=== PATIENT | male | born 1985 | race Caucasian/White ===

== ENCOUNTER 2016-11-12 13:25 | Emergency (ER) | payer MEDICAID ==
[~2016-11-12] VITALS: Ht 177.8 cm; Wt 81.7 kg
[2016-11-12] MEDS ORDERED: NALOXONE 1 MG/ML, 2ML ONE ×2 (13:32→13:36)
[2016-11-12] MEDS ORDERED: NALOXONE 0.4 MG/ML, 1ML ONE (13:36)
[2016-11-12] MEDS ORDERED: ETOMIDATE 40 MG/20 ML ONE (13:36)
[2016-11-12 14:17] LABS: HEMOGLOBIN 14.1 g/dL (13.7-18.0)
[2016-11-12 14:27] LABS: ASPARTATE AMINO TRANSFERASE 27 U/L (15-37); BLOOD UREA NITROGEN 8 mg/dL (7-18)
[2016-11-12] MEDS ORDERED: NALOXONE 1 MG/ML, 2ML IVPush ONE (14:30)
[2016-11-12 14:33] LABS: ACETAMINOPHEN < 2 mcg/mL (10-30)
[2016-11-12] MEDS ORDERED: SODIUM CHLORIDE 0.9% 1,000ML IVBOLUS ONE ×2 (15:30)
[2016-11-12 15:41] LABS: DAU SCREEN DISCLAIMER
[2016-11-12 16:30] VITALS: BP 113/66
== END 2016-11-12 16:55 | disposition home or self-care (01) ==
LOC: EDBD 13:25 → MERGE 13:25 → ED 16:49
DX: T40.1X1A Poisoning by heroin, accidental (unintentional), initial encounter (principal); Y92.9 Unspecified place or not applicable; J45.909 Unspecified asthma, uncomplicated
CPT/HCPCS: 36415; 80053; 80307; 80329; 85025; 96361; 96374; 99291; J2310; J7030; G0480

== ENCOUNTER 2017-05-09 15:11 | Emergency (ER) | payer MEDICAID ==
[~2017-05-09] VITALS: Ht 177.8 cm; Wt 77.9 kg
[2017-05-09] MEDS ORDERED: SODIUM CHLORIDE 0.9% 1,000 ML IV ONE (16:02)
[2017-05-09 16:18] LABS: HEMOGLOBIN 16.1 g/dL (13.7-18.0); WHITE BLOOD COUNT 6.4 x10^3/uL (3.4-10)
[2017-05-09 16:30] LABS: ASPARTATE AMINO TRANSFERASE 26 U/L (15-37); BLOOD UREA NITROGEN 11 mg/dL (7-18)
[2017-05-09 20:07] VITALS: BP 124/80
== END 2017-05-09 20:09 | disposition home or self-care (01) ==
LOC: ED 19:39
DX: S02.2XXA Fracture of nasal bones, initial encounter for closed fracture (principal); F10.120 Alcohol abuse with intoxication, uncomplicated; Y04.0XXA Assault by unarmed brawl or fight, initial encounter; Y93.89 Activity, other specified; Y92.488 Other paved roadways as the place of occurrence of the external cause; Y99.8 Other external cause status
CPT/HCPCS: 36415; 70450; 70486; 72125; 80053; 80307; 85025; 93005; 99285; J7030

== ENCOUNTER 2017-05-19 10:38 | Emergency (ER) | payer MEDICAID ==
[~2017-05-19] VITALS: Ht 177.8 cm; Wt 77.5 kg
[2017-05-19 10:40] VITALS: BP 145/85
[2017-05-19] MEDS ORDERED: AZITHROMYCIN 500 MG TABLET ONE (11:12)
[2017-05-19] MEDS ORDERED: CEFTRIAXONE 250 MG ONE (11:12)
[2017-05-19] MEDS ORDERED: LIDOCAINE 1%, 20ML ONE (11:12)
[2017-05-19] MEDS ORDERED: AZITHROMYCIN 500 MG TABLET PO ONE (11:30)
[2017-05-19] MEDS ORDERED: CEFTRIAXONE 250 MG IM ONE (11:30)
== END 2017-05-19 11:58 | disposition home or self-care (01) ==
LOC: ED 11:25
DX: A57 Chancroid (principal); J45.909 Unspecified asthma, uncomplicated
CPT/HCPCS: 96372; 99283; J0696

== ENCOUNTER 2017-11-29 21:43 | Emergency (ER) | payer MEDICAID ==
[~2017-11-29] VITALS: Ht 177.8 cm; Wt 68.0 kg
[2017-11-29] MEDS ORDERED: PLEASE ENTER HEIGHT AND WEIGHT MC SCH (22:00)
[2017-11-29] MEDS ORDERED: NALOXONE 0.4 MG/ML, 1ML IVPush PRN (22:00)
[2017-11-29 22:25] LABS: ALBUMIN 4.2 g/dL (3.4-5.0); ANION GAP 10 mmol/L (5-15); BASOPHILS # (AUTO) 0.03 x10^3/uL (0-0.1); BASOPHILS % (AUTO) 0 % (0-1); CALCIUM 8.2 mg/dL (8.5-10.1); CHLORIDE 110 mmol/L (98-107); CREATININE 0.93 mg/dL (0.7-1.3); EOSINOPHILS # (AUTO) 0.05 x10^3/uL (0-0.4); EOSINOPHILS % (AUTO) 1 % (1-7); LYMPHOCYTES # (AUTO) 4.08 x10^3/uL (1-3.4); LYMPHOCYTES % (AUTO) 52 % (22-44); MD NO; MEAN CORPUSCULAR HEMOGLOBIN 31.4 pg (27.5-34.5); MEAN CORPUSCULAR HGB CONC 33.9 g/dL (33.2-36.2); MEAN CORPUSCULAR VOLUME 92.5 fL (81-97); MEAN PLATELET VOLUME 8.9 fL (7.4-10.4); MONOCYTES # (AUTO) 0.42 x10^3/uL (0.2-0.8); MONOCYTES % (AUTO) 5 % (2-9); NEUTROPHILS # (AUTO) 3.26 x10^3/uL (1.8-6.8); NEUTROPHILS % (AUTO) 42 % (42-75); PLATELET COUNT 243 x10^3/uL (130-400); RED BLOOD COUNT 5.24 x10^6/uL (4.38-5.82); RED CELL DISTRIBUTION WIDTH 13.8 % (9.4-14.8)
[2017-11-29 22:26] LABS: ACETAMINOPHEN < 2 mcg/mL (10-30); SALICYLATE LEVEL < 1.7 mg/dL (2.8-20.0)
[2017-11-30 00:36] VITALS: BP 114/70
[2017-11-30 00:57] LABS: AMPHETAMINE SCREEN, URINE Negative (Negative); BARBITURATE SCREEN, URINE Negative (Negative); BENZODIAZEPINE SCREEN, URINE Negative (Negative); CANNABINOID SCREEN, URINE Positive (Negative); COCAINE SCREEN, URINE Negative (Negative); METHADONE SCREEN, URINE Negative (Negative); OPIATE SCREEN, URINE Negative (Negative)
== END 2017-11-30 03:38 | disposition left against medical advice (07) ==
LOC: ED 11-30 03:25
DX: T40.1X1A Poisoning by heroin, accidental (unintentional), initial encounter (principal); F10.129 Alcohol abuse with intoxication, unspecified; Z72.9 Problem related to lifestyle, unspecified; Z79.899 Other long term (current) drug therapy
CPT/HCPCS: 36415; 80048; 80307; 80329; 82040; 85025; 99284; G0480